=== PATIENT | female | born 1940 | race Caucasian/White ===

== ENCOUNTER 2022-11-01 06:37 | Emergency (ER) | payer MEDICARE ==
[2022-11-01] MEDS ORDERED: Fentanyl 100 MCG/2 ML VIAL ONE ×3 (07:18→10:35)
[2022-11-01 07:25] LABS: ALT (SGPT) 11 U/L (8-55); AST (SGOT) 14 U/L (5-34); Albumin 4.1 g/dL (3.4-4.8); Alkaline Phosphatase 52 U/L (40-110); Anion Gap 16 mmol/L (10-20); BUN (Urea Nitrogen) 20 mg/dL (9.8-20.1); Bilirubin, Total 0.2 mg/dL (0.2-1.2); Calc. Creatinine Clearance 0 mL/min (70-130); Carbon Dioxide 24 mmol/L (23-31); Chloride 102 mmol/L (98-107); Estimated GFR 69; Globulin 2.1 g/dL (2.4-3.5); Glucose 185 mg/dL (83-110); Protein, Total 6.2 g/dL (5.8-8.1); Sodium 138 mmol/L (136-145)
[2022-11-01 07:44] LABS: #Basophils 0.1 thou/uL (0.0-0.2); #Eosinphils 0.2 thou/uL (0.0-0.7); #Lymphocytes 1.4 thou/uL (1.20-3.40); #Monocytes 0.5 thou/uL (0.11-0.59); #Neutrophils 4.2 thou/uL (1.40-6.50); %Basophils 1.2 % (0.0-1.0); %Eosinophils 3.4 % (0.0-10.0); %Lymphocytes 22.3 % (21.0-51.0); %Monocytes 7.2 % (0.0-10.0); %Neutrophils 65.9 % (42.0-75.0); Hemoglobin 8.4 g/dL (12.0-16.0); Mean Corpuscular HGB CONC 28.5 g/dL (32.0-36.0); Mean Corpuscular Volume 63.2 fl (78.0-98.0); Mean Platelet Volume 11.5 fL (7.4-10.4); Platelet Count 191 10x3/uL (130-400); RBC Distribution Width 15.1 % (11.5-14.5); Red Blood Cell (RBC) Count 4.68 mill/uL (4.20-5.40); White Blood Cell (WBC) Count 6.4 10x3/uL (4.8-10.8)
[2022-11-01 07:46] LABS: Anisocytosis SLIGHT = 6-15 cells (100X) (0-5/hpf); Microcytosis MODERATE=15-30 cells (100X) (0-5/hpf)
[2022-11-01 07:47] LABS: Ovalocytes SLIGHT = 2-5 cells (100X) (0-1/hpf); Rouleaux Formation SLIGHT = 1-5 cells (100X) (None Seen)
[2022-11-01] MEDS ORDERED: Sodium Chloride 0.9% 1,000 ML ONE (08:53)
[2022-11-01] MEDS ORDERED: Morphine 4 MG/ML VIAL ONE (09:55)
[2022-11-01] MEDS ORDERED: Ondansetron PF 4 MG/2 ML Vial ONE (09:55)
[2022-11-01] MEDS ORDERED: Ondansetron ODT 4 MG TAB ONE (09:57)
== END 2022-11-01 10:42 | disposition short-term general hospital (02) ==
LOC: NAV ERS 06:37
DX: S72.031A Displaced midcervical fracture of right femur, initial encounter for closed fracture (principal); E11.9 Type 2 diabetes mellitus without complications; E78.5 Hyperlipidemia, unspecified; I10 Essential (primary) hypertension; W19.XXXA Unspecified fall, initial encounter; Z79.82 Long term (current) use of aspirin; Z79.84 Long term (current) use of oral hypoglycemic drugs
CPT/HCPCS: 70450; 71045; 80053; 84484; 85025; 93005; 96374; 96375; 96376; J2270; J2405; J3010; J7050; Q0162

== ENCOUNTER 2022-11-03 07:57 | Inpatient (IN) | payer MEDICARE ==
[2022-11-03] MEDS ORDERED: Acetaminophen/Codeine 30-300mg Tablet PO SCH ×2 (13:30→15:45)
[2022-11-03] MEDS ORDERED: Dextrose 50% Abboject 50 ML SYRINGE SLOW IVP PRN (13:31)
[2022-11-03] MEDS ORDERED: Senokot S 8.6-50 MG TAB PO PRN (13:31)
[2022-11-03] MEDS ORDERED: HumaLOG 300 UNITS/3 ML VIAL SC PRN (13:31)
[2022-11-03] MEDS ORDERED: Bisacodyl 5 MG TAB PO PRN (13:31)
[2022-11-03] MEDS: Gabapentin 100 MG CAP PO SCH ×2 (15:41→20:45)
[2022-11-03] MEDS: HumaLOG 300 UNITS/3 ML VIAL SC PRN (16:58)
[2022-11-03 17:11] LABS: #Basophils 0.1 thou/uL (0.0-0.2); #Eosinphils 0.2 thou/uL (0.0-0.7); #Monocytes 0.5 thou/uL (0.11-0.59); #Neutrophils 6.5 thou/uL (1.40-6.50); %Basophils 0.7 % (0.0-1.0); %Eosinophils 2.7 % (0.0-10.0); %Lymphocytes 11.9 % (21.0-51.0); %Monocytes 6.2 % (0.0-10.0); %Neutrophils 78.5 % (42.0-75.0)
[2022-11-03 17:21] LABS: ALT (SGPT) 28 U/L (8-55); AST (SGOT) 89 U/L (5-34); Albumin 3.9 g/dL (3.4-4.8); Alkaline Phosphatase 65 U/L (40-110); Anion Gap 14 mmol/L (10-20); BUN (Urea Nitrogen) 12 mg/dL (9.8-20.1); Bilirubin, Total 0.4 mg/dL (0.2-1.2); Calc. Creatinine Clearance 69 mL/min (70-130); Calcium 9.1 mg/dL (7.8-10.44); Carbon Dioxide 24 mmol/L (23-31); Chloride 101 mmol/L (98-107); Estimated GFR 80; Globulin 2.6 g/dL (2.4-3.5); Glucose 181 mg/dL (83-110); Potassium 3.9 mmol/L (3.5-5.1); Protein, Total 6.5 g/dL (5.8-8.1); Sodium 135 mmol/L (136-145)
[2022-11-03 17:34] LABS: Hemoglobin 7.9 g/dL (12.0-16.0); Mean Corpuscular HGB CONC 29.1 g/dL (32.0-36.0); Mean Corpuscular Hemoglobin 18.2 pg (27.0-31.0); Mean Corpuscular Volume 62.5 fl (78.0-98.0); Red Blood Cell (RBC) Count 4.35 mill/uL (4.20-5.40); White Blood Cell (WBC) Count 8.3 10x3/uL (4.8-10.8)
[2022-11-03 17:35] LABS: Platelet Count 178 10x3/uL (130-400); RBC Distribution Width 15.3 % (11.5-14.5)
[2022-11-03] MEDS: Ferrous Sulfate 325 MG TAB PO SCH (17:38)
[2022-11-03 17:43] LABS: Mean Platelet Volume 12.2 fL (7.4-10.4)
[2022-11-03 17:44] LABS: Anisocytosis SLIGHT = 6-15 cells (100X) (0-5/hpf); Microcytosis SLIGHT = 6-15 cells (100X) (0-5/hpf)
[2022-11-03 17:45] LABS: Hypochromia SLIGHT = 6-15 cells (100X) (0-5/hpf); Target Cells SLIGHT = 2-5 cells (100X) (0-1/hpf)
[2022-11-03 17:46] LABS: Elliptocytes SLIGHT = 2-5 cells (100X) (0-1/hpf); Tear Drops SLIGHT = 2-5 cells (100X) (0-1/hpf)
[2022-11-03 17:47] LABS: Large Platelets SLIGHT; Toxic Granulation SLIGHT
[2022-11-03 17:48] LABS: Platelet Morphology Comment Appears Adequate
[2022-11-03] MEDS: metFORMIN 500 MG TAB PO SCH (20:44)
[2022-11-03] MEDS: Ascorbic Acid 500 mg Chewable Tablet PO SCH (20:44)
[2022-11-03] MEDS: clonazePAM 1 MG TAB PO SCH (20:44)
[2022-11-03] MEDS: Famotidine 20 MG TAB PO SCH (20:44)
[2022-11-03] MEDS: Acetaminophen/Codeine 30-300mg Tablet PO SCH (20:46)
[2022-11-03] MEDS ORDERED: metFORMIN 500 MG TAB PO SCH (21:00)
[2022-11-03] MEDS ORDERED: clonazePAM 0.5 MG TAB PO SCH (21:00)
[2022-11-04] MEDS: Acetaminophen/Codeine 30-300mg Tablet PO SCH ×4 (05:01→21:30)
[2022-11-04] MEDS: Levothyroxine Sodium 25 MCG TAB PO SCH (05:03)
[2022-11-04] MEDS: Levothyroxine Sodium 112 MCG TAB PO SCH (05:03)
[2022-11-04] MEDS: HumaLOG 300 UNITS/3 ML VIAL SC PRN (05:23)
[2022-11-04 05:43] LABS: #Eosinphils 0.4 thou/uL (0.0-0.7); #Lymphocytes 1.5 thou/uL (1.20-3.40); #Monocytes 0.7 thou/uL (0.11-0.59); #Neutrophils 5.7 thou/uL (1.40-6.50); %Basophils 0.5 % (0.0-1.0); %Eosinophils 4.6 % (0.0-10.0); %Neutrophils 68.9 % (42.0-75.0); Hemoglobin 7.6 g/dL (12.0-16.0); Mean Corpuscular Hemoglobin 18.2 pg (27.0-31.0); Mean Corpuscular Volume 62.7 fl (78.0-98.0); Mean Platelet Volume 10.1 fL (7.4-10.4); Platelet Count 176 10x3/uL (130-400); RBC Distribution Width 15.3 % (11.5-14.5); Red Blood Cell (RBC) Count 4.19 mill/uL (4.20-5.40); White Blood Cell (WBC) Count 8.3 10x3/uL (4.8-10.8)
[2022-11-04 06:05] LABS: ALT (SGPT) 28 U/L (8-55); AST (SGOT) 53 U/L (5-34); Albumin 3.6 g/dL (3.4-4.8); Alkaline Phosphatase 71 U/L (40-110); Anion Gap 14 mmol/L (10-20); BUN (Urea Nitrogen) 11 mg/dL (9.8-20.1); Bilirubin, Total 0.3 mg/dL (0.2-1.2); Calc. Creatinine Clearance 66 mL/min (70-130); Calcium 8.9 mg/dL (7.8-10.44); Carbon Dioxide 24 mmol/L (23-31); Chloride 103 mmol/L (98-107); Estimated GFR 76; Globulin 2.4 g/dL (2.4-3.5); Glucose 149 mg/dL (83-110); Potassium 4.1 mmol/L (3.5-5.1); Sodium 137 mmol/L (136-145)
[2022-11-04] MEDS: Sertraline 100 MG TAB PO SCH (08:26)
[2022-11-04] MEDS: Ferrous Sulfate 325 MG TAB PO SCH ×2 (08:26→16:45)
[2022-11-04] MEDS: Gabapentin 100 MG CAP PO SCH ×3 (08:26→20:16)
[2022-11-04] MEDS: Ascorbic Acid 500 mg Chewable Tablet PO SCH ×2 (08:27→20:16)
[2022-11-04] MEDS: Famotidine 20 MG TAB PO SCH ×2 (08:27→20:17)
[2022-11-04] MEDS: metFORMIN 500 MG TAB PO SCH ×2 (08:28→20:16)
[2022-11-04] MEDS: Hydrochlorothiazide 25 MG TAB PO SCH (08:28)
[2022-11-04] MEDS: clonazePAM 0.5 MG TAB PO SCH (08:28)
[2022-11-04] MEDS: Losartan 25 MG TAB PO SCH (08:28)
[2022-11-04 14:39] VITALS: BMI 27.7
[2022-11-04] MEDS: Ondansetron ODT 4 MG TAB SL PRN (16:46)
[2022-11-04] MEDS: clonazePAM 1 MG TAB PO SCH (20:17)
[2022-11-05] MEDS: Acetaminophen/Codeine 30-300mg Tablet PO SCH ×2 (05:02→10:43)
[2022-11-05] MEDS: Levothyroxine Sodium 25 MCG TAB PO SCH (05:03)
[2022-11-05] MEDS: Levothyroxine Sodium 112 MCG TAB PO SCH (05:03)
[2022-11-05 06:08] LABS: ALT (SGPT) 19 U/L (8-55); AST (SGOT) 23 U/L (5-34); Albumin 3.5 g/dL (3.4-4.8); Anion Gap 14 mmol/L (10-20); BUN (Urea Nitrogen) 14 mg/dL (9.8-20.1); Bilirubin, Total 0.3 mg/dL (0.2-1.2); Calc. Creatinine Clearance 72 mL/min (70-130); Calcium 8.8 mg/dL (7.8-10.44); Chloride 103 mmol/L (98-107); Estimated GFR 84; Globulin 2.5 g/dL (2.4-3.5); Glucose 151 mg/dL (83-110); Potassium 3.8 mmol/L (3.5-5.1); Sodium 137 mmol/L (136-145)
[2022-11-05 06:24] LABS: #Basophils 0.1 thou/uL (0.0-0.2); #Eosinphils 0.3 thou/uL (0.0-0.7); #Lymphocytes 1.4 thou/uL (1.20-3.40); #Monocytes 0.7 thou/uL (0.11-0.59); #Neutrophils 6.6 thou/uL (1.40-6.50); %Basophils 0.8 % (0.0-1.0); %Eosinophils 3.4 % (0.0-10.0); %Lymphocytes 15.2 % (21.0-51.0); %Monocytes 7.8 % (0.0-10.0); %Neutrophils 72.8 % (42.0-75.0); Hemoglobin 8.1 g/dL (12.0-16.0); Mean Corpuscular HGB CONC 29.6 g/dL (32.0-36.0); Mean Corpuscular Hemoglobin 18.6 pg (27.0-31.0); Mean Corpuscular Volume 62.8 fl (78.0-98.0); Mean Platelet Volume 12.5 fL (7.4-10.4); Platelet Count 188 10x3/uL (130-400); RBC Distribution Width 15.5 % (11.5-14.5); Red Blood Cell (RBC) Count 4.35 mill/uL (4.20-5.40); White Blood Cell (WBC) Count 9.1 10x3/uL (4.8-10.8)
[2022-11-05 06:31] LABS: Carbon Dioxide 24 mmol/L (23-31)
[2022-11-05 06:32] LABS: Alkaline Phosphatase 70 U/L (40-110)
[2022-11-05] MEDS: metFORMIN 500 MG TAB PO SCH ×2 (08:47→20:04)
[2022-11-05] MEDS: Sertraline 100 MG TAB PO SCH (08:47)
[2022-11-05] MEDS: Aspirin Chewable 81 MG TAB PO SCH ×2 (08:47→20:04)
[2022-11-05] MEDS: Gabapentin 100 MG CAP PO SCH ×3 (08:48→20:04)
[2022-11-05] MEDS: Ferrous Sulfate 325 MG TAB PO SCH ×2 (08:48→17:08)
[2022-11-05] MEDS: Ascorbic Acid 500 mg Chewable Tablet PO SCH ×2 (08:48→20:04)
[2022-11-05] MEDS: clonazePAM 0.5 MG TAB PO SCH (08:49)
[2022-11-05] MEDS: Losartan 25 MG TAB PO SCH (08:49)
[2022-11-05] MEDS: Hydrochlorothiazide 25 MG TAB PO SCH (08:49)
[2022-11-05] MEDS: Famotidine 20 MG TAB PO SCH ×2 (08:49→20:04)
[2022-11-05] MEDS: Ondansetron ODT 4 MG TAB SL PRN (08:52)
[2022-11-05] MEDS: Acetaminophen 325 MG TAB PO PRN (20:05)
[2022-11-05] MEDS: clonazePAM 1 MG TAB PO SCH (20:05)
[2022-11-06] MEDS: Acetaminophen/Codeine 30-300mg Tablet PO PRN ×3 (00:30→20:10)
[2022-11-06] MEDS: Levothyroxine Sodium 25 MCG TAB PO SCH (05:36)
[2022-11-06] MEDS: Levothyroxine Sodium 112 MCG TAB PO SCH (05:36)
[2022-11-06] MEDS: Ascorbic Acid 500 mg Chewable Tablet PO SCH ×2 (07:47→20:10)
[2022-11-06] MEDS: Hydrochlorothiazide 25 MG TAB PO SCH (07:47)
[2022-11-06] MEDS: Ferrous Sulfate 325 MG TAB PO SCH ×2 (07:47→17:23)
[2022-11-06] MEDS: Aspirin Chewable 81 MG TAB PO SCH ×2 (07:47→20:10)
[2022-11-06] MEDS: Losartan 25 MG TAB PO SCH (07:48)
[2022-11-06] MEDS: clonazePAM 0.5 MG TAB PO SCH (07:48)
[2022-11-06] MEDS: metFORMIN 500 MG TAB PO SCH ×2 (07:48→20:10)
[2022-11-06] MEDS: Gabapentin 100 MG CAP PO SCH ×3 (07:50→20:10)
[2022-11-06] MEDS: Sertraline 100 MG TAB PO SCH (07:51)
[2022-11-06] MEDS: Famotidine 20 MG TAB PO SCH ×2 (07:51→20:10)
[2022-11-06] MEDS: Acetaminophen 325 MG TAB PO PRN (11:57)
[2022-11-06] MEDS ORDERED: clonazePAM 0.5 MG TAB PO PRN (17:51)
[2022-11-06] MEDS: clonazePAM 1 MG TAB PO SCH (20:10)
[2022-11-07] MEDS: Acetaminophen 325 MG TAB PO PRN (01:29)
[2022-11-07] MEDS: Levothyroxine Sodium 112 MCG TAB PO SCH (05:45)
[2022-11-07] MEDS: Levothyroxine Sodium 25 MCG TAB PO SCH (05:45)
[2022-11-07 05:59] LABS: #Basophils 0.1 thou/uL (0.0-0.2); #Eosinphils 0.3 thou/uL (0.0-0.7); #Lymphocytes 1.3 thou/uL (1.20-3.40); #Monocytes 0.6 thou/uL (0.11-0.59); %Basophils 1.3 % (0.0-1.0); %Eosinophils 5.5 % (0.0-10.0); %Lymphocytes 20.1 % (21.0-51.0); %Monocytes 8.8 % (0.0-10.0); %Neutrophils 64.2 % (42.0-75.0); Hemoglobin 7.8 g/dL (12.0-16.0); Mean Corpuscular HGB CONC 29.2 g/dL (32.0-36.0); Mean Corpuscular Hemoglobin 18.7 pg (27.0-31.0); Mean Corpuscular Volume 64.1 fl (78.0-98.0); Mean Platelet Volume 9.4 fL (7.4-10.4); Platelet Count 187 10x3/uL (130-400); RBC Distribution Width 16.9 % (11.5-14.5); Red Blood Cell (RBC) Count 4.18 mill/uL (4.20-5.40); White Blood Cell (WBC) Count 6.2 10x3/uL (4.8-10.8)
[2022-11-07 06:05] LABS: Anion Gap 14 mmol/L (10-20); BUN (Urea Nitrogen) 17 mg/dL (9.8-20.1); Calc. Creatinine Clearance 73 mL/min (70-130); Calcium 9.1 mg/dL (7.8-10.44); Carbon Dioxide 25 mmol/L (23-31); Chloride 102 mmol/L (98-107); Estimated GFR 86; Glucose 140 mg/dL (83-110); Potassium 3.3 mmol/L (3.5-5.1); Sodium 138 mmol/L (136-145)
[2022-11-07] MEDS: Acetaminophen/Codeine 30-300mg Tablet PO PRN ×2 (07:49→19:37)
[2022-11-07] MEDS: Ferrous Sulfate 325 MG TAB PO SCH ×2 (07:50→17:44)
[2022-11-07] MEDS: Gabapentin 100 MG CAP PO SCH ×3 (07:50→20:41)
[2022-11-07] MEDS: Aspirin Chewable 81 MG TAB PO SCH ×2 (07:51→20:40)
[2022-11-07] MEDS: Hydrochlorothiazide 25 MG TAB PO SCH (07:51)
[2022-11-07] MEDS: Sertraline 100 MG TAB PO SCH (07:51)
[2022-11-07] MEDS: Ascorbic Acid 500 mg Chewable Tablet PO SCH ×2 (07:52→20:41)
[2022-11-07] MEDS: metFORMIN 500 MG TAB PO SCH ×2 (07:52→20:40)
[2022-11-07] MEDS: Losartan 25 MG TAB PO SCH (07:52)
[2022-11-07] MEDS: Famotidine 20 MG TAB PO SCH ×2 (07:52→20:41)
[2022-11-07] MEDS ORDERED: Potassium Chloride 20 MEQ TAB PO SCH (14:00)
[2022-11-07] MEDS: HumaLOG 300 UNITS/3 ML VIAL SC PRN (17:45)
[2022-11-07] MEDS: clonazePAM 1 MG TAB PO SCH (20:40)
[2022-11-08] MEDS: Levothyroxine Sodium 25 MCG TAB PO SCH (05:53)
[2022-11-08] MEDS: Levothyroxine Sodium 112 MCG TAB PO SCH (05:53)
[2022-11-08] MEDS: HumaLOG 300 UNITS/3 ML VIAL SC PRN ×2 (05:58→16:56)
[2022-11-08] MEDS: Acetaminophen 325 MG TAB PO PRN (07:30)
[2022-11-08] MEDS: Gabapentin 100 MG CAP PO SCH ×3 (07:31→20:46)
[2022-11-08] MEDS: metFORMIN 500 MG TAB PO SCH ×2 (08:12→20:47)
[2022-11-08] MEDS: Losartan 25 MG TAB PO SCH (08:13)
[2022-11-08] MEDS: Sertraline 100 MG TAB PO SCH (08:13)
[2022-11-08] MEDS: Famotidine 20 MG TAB PO SCH ×2 (08:13→20:47)
[2022-11-08] MEDS: Ferrous Sulfate 325 MG TAB PO SCH ×2 (08:13→16:57)
[2022-11-08] MEDS: Aspirin Chewable 81 MG TAB PO SCH ×2 (08:13→20:46)
[2022-11-08] MEDS: Hydrochlorothiazide 25 MG TAB PO SCH (08:13)
[2022-11-08] MEDS: Ascorbic Acid 500 mg Chewable Tablet PO SCH ×2 (08:13→20:47)
[2022-11-08] MEDS: clonazePAM 1 MG TAB PO SCH (20:47)
[2022-11-09] MEDS: Acetaminophen/Codeine 30-300mg Tablet PO PRN (02:23)
[2022-11-09] MEDS: Levothyroxine Sodium 112 MCG TAB PO SCH (05:26)
[2022-11-09] MEDS: Levothyroxine Sodium 25 MCG TAB PO SCH (05:26)
[2022-11-09 06:03] LABS: #Basophils 0.1 thou/uL (0.0-0.2); #Eosinphils 0.3 thou/uL (0.0-0.7); #Lymphocytes 1.3 thou/uL (1.20-3.40); #Monocytes 0.5 thou/uL (0.11-0.59); %Basophils 1.2 % (0.0-1.0); %Eosinophils 5.1 % (0.0-10.0); %Lymphocytes 21.2 % (21.0-51.0); %Monocytes 8.2 % (0.0-10.0); %Neutrophils 64.3 % (42.0-75.0); Hemoglobin 8.1 g/dL (12.0-16.0); Mean Corpuscular HGB CONC 28.7 g/dL (32.0-36.0); Mean Corpuscular Hemoglobin 18.6 pg (27.0-31.0); Mean Corpuscular Volume 64.9 fl (78.0-98.0); Mean Platelet Volume 9.4 fL (7.4-10.4); Platelet Count 193 10x3/uL (130-400); RBC Distribution Width 18.2 % (11.5-14.5); Red Blood Cell (RBC) Count 4.32 mill/uL (4.20-5.40); White Blood Cell (WBC) Count 6.3 10x3/uL (4.8-10.8)
[2022-11-09] MEDS: HumaLOG 300 UNITS/3 ML VIAL SC PRN (06:08)
[2022-11-09 06:15] LABS: Anion Gap 14 mmol/L (10-20); BUN (Urea Nitrogen) 16 mg/dL (9.8-20.1); Calc. Creatinine Clearance 69 mL/min (70-130); Calcium 9.1 mg/dL (7.8-10.44); Carbon Dioxide 26 mmol/L (23-31); Chloride 103 mmol/L (98-107); Estimated GFR 80; Glucose 146 mg/dL (83-110); Potassium 3.4 mmol/L (3.5-5.1); Sodium 140 mmol/L (136-145)
[2022-11-09] MEDS: Hydrochlorothiazide 25 MG TAB PO SCH (08:45)
[2022-11-09] MEDS: Gabapentin 100 MG CAP PO SCH (08:46)
[2022-11-09] MEDS: Acetaminophen 325 MG TAB PO PRN (08:48)
[2022-11-09] MEDS: Aspirin Chewable 81 MG TAB PO SCH (08:50)
[2022-11-09] MEDS: metFORMIN 500 MG TAB PO SCH (08:50)
[2022-11-09] MEDS: Ascorbic Acid 500 mg Chewable Tablet PO SCH (08:50)
[2022-11-09] MEDS: Sertraline 100 MG TAB PO SCH (08:50)
[2022-11-09] MEDS: Ferrous Sulfate 325 MG TAB PO SCH (08:51)
[2022-11-09] MEDS: Losartan 25 MG TAB PO SCH (08:51)
[2022-11-09] MEDS: Famotidine 20 MG TAB PO SCH (08:51)
[2022-11-09 09:14] VITALS: BP 126/58; TEMP 97.7
== END 2022-11-09 10:50 | disposition home or self-care (01) | DRG 559 ==
LOC: NAV ACUTE 14:30
PROVIDERS: ADMIT Family Medicine; ATTEND Family Medicine
DX: S72.001D Fracture of unspecified part of neck of right femur, subsequent encounter for closed fracture with routine healing (principal); S72.031A Displaced midcervical fracture of right femur, initial encounter for closed fracture; I48.20 Chronic atrial fibrillation, unspecified; F41.1 Generalized anxiety disorder; E11.9 Type 2 diabetes mellitus without complications; I10 Essential (primary) hypertension; E78.5 Hyperlipidemia, unspecified; E89.0 Postprocedural hypothyroidism; G47.00 Insomnia, unspecified; R53.83 Other fatigue; R10.10 Upper abdominal pain, unspecified; Z85.3 Personal history of malignant neoplasm of breast; Z90.49 Acquired absence of other specified parts of digestive tract; Z90.710 Acquired absence of both cervix and uterus; Z90.13 Acquired absence of bilateral breasts and nipples; Z98.890 Other specified postprocedural states; Z98.49 Cataract extraction status, unspecified eye; Z82.3 Family history of stroke; Z83.6 Family history of other diseases of the respiratory system; Z79.899 Other long term (current) drug therapy; Z79.890 Hormone replacement therapy; Z79.84 Long term (current) use of oral hypoglycemic drugs; W19.XXXA Unspecified fall, initial encounter; Z79.82 Long term (current) use of aspirin
CPT/HCPCS: 36415; 36416; 70450; 71045; 74018; 80048; 80053; 84484; 85025; 93005; 96374; 96375; 96376; J1815; J2270; J2405; J3010; J7050; Q0162

== ENCOUNTER 2022-12-29 02:39 | Emergency (ER) | payer MEDICARE ==
[2022-12-29] MEDS ORDERED: Ondansetron PF 4 MG/2 ML Vial ONE (03:34)
[2022-12-29] MEDS ORDERED: Morphine 2 MG/ML VIAL ONE ×2 (03:34→04:26)
[2022-12-29 03:54] LABS: Bilirubin Negative (Negative); Blood, Urine Negative (Negative); Clarity Clear (Clear); Glucose, Urine (Dipstick) Negative (Negative); Ketone, Urine Negative (Negative); Leukocyte Small (Negative); Nitrite Negative (Negative); Protein, Urine (Dipstick) Negative (Neg-Trace); Specific Gravity, Urine 1.025 (1.005-1.030); Urobilinogen 0.2 mg/dL (Less than 2); pH, Urine 5.5 (5.0-9.0)
[2022-12-29 03:56] LABS: RBC/HPF None Seen HPF (0-3); Squamous Epithelial 0-3 HPF (0-3)
[2022-12-29 03:57] LABS: Bacteria/HPF Rare-Few HPF (None Seen); Mucous/LPF Rare LPF (<2+)
[2022-12-29 03:58] LABS: #Basophils 0.1 thou/uL (0.0-0.2); #Eosinphils 0.2 thou/uL (0.0-0.7); #Lymphocytes 1.1 thou/uL (1.20-3.40); #Monocytes 0.5 thou/uL (0.11-0.59); #Neutrophils 9.5 thou/uL (1.40-6.50); %Basophils 0.7 % (0.0-1.0); %Eosinophils 1.9 % (0.0-10.0); %Lymphocytes 9.4 % (21.0-51.0); %Monocytes 4.1 % (0.0-10.0); %Neutrophils 83.9 % (42.0-75.0); Hemoglobin 9.6 g/dL (12.0-16.0); Mean Corpuscular HGB CONC 28.6 g/dL (32.0-36.0); Mean Corpuscular Hemoglobin 18.3 pg (27.0-31.0); Mean Platelet Volume 10.3 fL (7.4-10.4); Platelet Count 194 10x3/uL (130-400); RBC Distribution Width 17.9 % (11.5-14.5); Red Blood Cell (RBC) Count 5.24 mill/uL (4.20-5.40); White Blood Cell (WBC) Count 11.3 10x3/uL (4.8-10.8)
[2022-12-29 04:06] LABS: ALT (SGPT) Less than 7 U/L (8-55); AST (SGOT) 15 U/L (5-34); Albumin 4.2 g/dL (3.4-4.8); Alkaline Phosphatase 82 U/L (40-110); Anion Gap 17 mmol/L (10-20); BUN (Urea Nitrogen) 19 mg/dL (9.8-20.1); Bilirubin, Total 0.3 mg/dL (0.2-1.2); CK (CPK) 28 U/L (29-168); Calc. Creatinine Clearance 0 mL/min (70-130); Calcium 9.5 mg/dL (7.8-10.44); Carbon Dioxide 23 mmol/L (23-31); Chloride 101 mmol/L (98-107); Estimated GFR 73; Globulin 3.1 g/dL (2.4-3.5); Glucose 136 mg/dL (83-110); Potassium 3.1 mmol/L (3.5-5.1); Protein, Total 7.3 g/dL (5.8-8.1); Sodium 138 mmol/L (136-145)
[2022-12-29] MEDS ORDERED: Potassium Chloride 10 MEQ/100 ML PREMIX BAG ONE (04:47)
[2022-12-29] MEDS ORDERED: NS 0.9% w/ 20 MEQ KCL 1,000 ML ONE (04:47)
[2022-12-29] MEDS ORDERED: traMADol HCl 50 MG TAB ONE (05:40)
[2022-12-29] MEDS ORDERED: Iopamidol 370 76% 100 ML VIAL ONE (09:00)
== END 2022-12-29 05:56 | disposition home or self-care (01) ==
LOC: NAV ERS 02:39
DX: M17.11 Unilateral primary osteoarthritis, right knee (principal); M79.602 Pain in left arm; E11.9 Type 2 diabetes mellitus without complications; E78.5 Hyperlipidemia, unspecified; I10 Essential (primary) hypertension; Z79.84 Long term (current) use of oral hypoglycemic drugs; Z79.82 Long term (current) use of aspirin
CPT/HCPCS: 71275; 80053; 81003; 81015; 82550; 84484; 85025; 85379; 86140; 87086; 93005; 96365; 96375; 96376; J2272; J2405; J3480; Q9967

== ENCOUNTER 2023-02-08 23:00 | Emergency (ER) | payer MEDICARE ==
[2023-02-08 23:39] LABS: #Basophils 0.1 thou/uL (0.0-0.2); #Eosinphils 0.4 thou/uL (0.0-0.7); #Lymphocytes 2.4 thou/uL (1.20-3.40); #Monocytes 0.7 thou/uL (0.11-0.59); #Neutrophils 5.5 thou/uL (1.40-6.50); %Basophils 0.9 % (0.0-1.0); %Eosinophils 4.4 % (0.0-10.0); %Lymphocytes 26.7 % (21.0-51.0); %Monocytes 7.2 % (0.0-10.0); %Neutrophils 60.8 % (42.0-75.0); Hemoglobin 10.8 g/dL (12.0-16.0); Mean Corpuscular HGB CONC 29.9 g/dL (32.0-36.0); Mean Corpuscular Hemoglobin 20.4 pg (27.0-31.0); Mean Corpuscular Volume 68.3 fl (78.0-98.0); Platelet Count 215 10x3/uL (130-400); RBC Distribution Width 20.5 % (11.5-14.5)
[2023-02-08 23:47] LABS: ALT (SGPT) 9 U/L (8-55); AST (SGOT) 15 U/L (5-34); Albumin 4.1 g/dL (3.4-4.8); Alkaline Phosphatase 76 U/L (40-110); Anion Gap 14 mmol/L (10-20); BUN (Urea Nitrogen) 17 mg/dL (9.8-20.1); Bilirubin, Total 0.5 mg/dL (0.2-1.2); Calc. Creatinine Clearance 0 mL/min (70-130); Calcium 9.3 mg/dL (7.8-10.44); Carbon Dioxide 23 mmol/L (23-31); Chloride 106 mmol/L (98-107); Estimated GFR 74; Globulin 2.8 g/dL (2.4-3.5); Glucose 137 mg/dL (83-110); INR-International Normal Ratio 1.4; Potassium 3.6 mmol/L (3.5-5.1); Protein, Total 6.9 g/dL (5.8-8.1); Prothrombin Time 17.8 sec (12.0-14.7); Sodium 139 mmol/L (136-145)
[2023-02-08 23:54] LABS: Anisocytosis SLIGHT = 6-15 cells (100X) (0-5/hpf); Hypochromia SLIGHT = 6-15 cells (100X) (0-5/hpf); MDiff Complete? YES; Microcytosis SLIGHT = 6-15 cells (100X) (0-5/hpf); Platelet Adequacy Comment Appears Adequate
== END 2023-02-09 01:52 | disposition home or self-care (01) ==
LOC: NAV ERS 23:00
DX: I48.91 Unspecified atrial fibrillation (principal); D64.9 Anemia, unspecified; I87.2 Venous insufficiency (chronic) (peripheral); E78.5 Hyperlipidemia, unspecified; I10 Essential (primary) hypertension; E11.9 Type 2 diabetes mellitus without complications; Z79.84 Long term (current) use of oral hypoglycemic drugs; Z79.01 Long term (current) use of anticoagulants; Z79.82 Long term (current) use of aspirin; Z79.899 Other long term (current) drug therapy
CPT/HCPCS: 71045; 80053; 83880; 84443; 84484; 85025; 85379; 85610; 85730; 93005; 96374; 96376

== ENCOUNTER 2023-03-03 11:33 | Emergency (ER) | payer MEDICARE ==
[2023-03-03] MEDS ORDERED: Furosemide 20 MG/2 ML VIAL ONE (12:00)
[2023-03-03 12:30] LABS: #Basophils 0.1 thou/uL (0.0-0.2); #Eosinphils 0.2 thou/uL (0.0-0.7); #Lymphocytes 1.8 thou/uL (1.20-3.40); #Monocytes 0.4 thou/uL (0.11-0.59); #Neutrophils 4.8 thou/uL (1.40-6.50); %Eosinophils 2.5 % (0.0-10.0); %Lymphocytes 24.6 % (21.0-51.0); %Neutrophils 65.9 % (42.0-75.0); Hemoglobin 10.3 g/dL (12.0-16.0); Mean Corpuscular HGB CONC 30.2 g/dL (32.0-36.0); Mean Corpuscular Hemoglobin 21.1 pg (27.0-31.0); Mean Corpuscular Volume 69.7 fl (78.0-98.0); Mean Platelet Volume 9.8 fL (7.4-10.4); Platelet Count 211 10x3/uL (130-400); RBC Distribution Width 19.7 % (11.5-14.5); Red Blood Cell (RBC) Count 4.89 mill/uL (4.20-5.40); White Blood Cell (WBC) Count 7.2 10x3/uL (4.8-10.8)
[2023-03-03 12:33] LABS: ALT (SGPT) 8 U/L (8-55); AST (SGOT) 13 U/L (5-34); Albumin 4.1 g/dL (3.4-4.8); Alkaline Phosphatase 67 U/L (40-110); Anion Gap 14 mmol/L (10-20); BUN (Urea Nitrogen) 22 mg/dL (9.8-20.1); Bilirubin, Total 0.4 mg/dL (0.2-1.2); Calc. Creatinine Clearance 0 mL/min (70-130); Calcium 9.2 mg/dL (7.8-10.44); Carbon Dioxide 21 mmol/L (23-31); Chloride 108 mmol/L (98-107); Estimated GFR 75; Globulin 2.3 g/dL (2.4-3.5); Glucose 136 mg/dL (83-110); Magnesium 1.9 mg/dL (1.6-2.6); Potassium 3.9 mmol/L (3.5-5.1); Protein, Total 6.4 g/dL (5.8-8.1); Sodium 139 mmol/L (136-145)
== END 2023-03-03 14:11 | disposition short-term general hospital (02) ==
LOC: NAV ERS 11:33
DX: I48.20 Chronic atrial fibrillation, unspecified (principal); I11.0 Hypertensive heart disease with heart failure; I50.9 Heart failure, unspecified; E11.9 Type 2 diabetes mellitus without complications; E78.5 Hyperlipidemia, unspecified; Z79.84 Long term (current) use of oral hypoglycemic drugs; Z79.899 Other long term (current) drug therapy; Z79.01 Long term (current) use of anticoagulants
CPT/HCPCS: 71045; 80053; 83735; 83880; 84484; 85025; 93005; 96374; J1940